=== PATIENT | female | born 1975 | race Caucasian/White ===

== ENCOUNTER → 2018-09-27 08:26 | Outpatient (CLI) | payer MEDICAID, SELFPAY | PROVIDERS: PCP Nurse Practitioner Family; Visit Provider Internal Medicine | DX: R00.0 Tachycardia, unspecified (principal); R06.00 Dyspnea, unspecified; R07.9 Chest pain, unspecified | CPT/HCPCS: 93306 ==

== ENCOUNTER → 2019-05-12 14:19 | Outpatient (CLI) | payer MEDICAID, SELFPAY ==
--- NOTE | 2019-05-12 15:11 | PC.NURSE ---
RESPIRATORY CARE NOTE: PATIENT UNABLE TO COMPLETE PFT DUE TO NON-COMPLIANCE WITH INSTRUCTIONS. ATTEMPTED SEVERAL TIMES BY TWO DIFFERENT RESPIRATORY THERAPISTS WITHOUT SUCCESS.
== END ==
PROVIDERS: PCP Nurse Practitioner Family; Visit Provider Physician Assistant
DX: R06.02 Shortness of breath (principal)